=== PATIENT | female | born 1980 | race Caucasian/White ===

== ENCOUNTER 2020-12-08 18:35 | Emergency (ER) | payer OTHER, SELFPAY ==
[2020-12-08 18:55] VITALS: BP 155/103; PULSE 98; RESP 18; TEMP 37.2; O2SAT 100
[2020-12-08 21:39] VITALS: BP 142/97; PULSE 93; RESP 16; O2SAT 96
[2020-12-08] MEDS: KETOROLAC (*BKC) 60 MG/2 ML VIAL IM (22:28)
--- NOTE | 2020-12-08 23:31 | ED.BACK ---
HPI - Back Pain/Injury General Chief Complaint: Back Pain/Injury Stated Complaint: leg pain Time Seen by Provider: 12/08/20 21:55 History of Present Illness HPI Narrative: Patient is a 40-year-old female who presents ER with low back pain. Ongoing over the last couple days. Left-sided in her buttocks that radiates around in her thigh and also goes into her groin. No difficulty with urination or defecation. No focal weakness. Has history of sciatica. She has not taken any anti-inflammatory since her previous prescription of Toradol. She has no muscle relaxers at home. Patient reports chronic lymphedema in her left lower extremity that has been unchanged. No recent trauma or injury to provoke this. Related Data Allergies Allergy/AdvReac Type Severity Reaction Status Date / Time Penicillins Allergy Mild Rash Verified 01/31/15 16:39 Review of Systems Review of Systems: All systems reviewed & are unremarkable except as noted in HPI and below Constitutional: Constitutional: Denies chills and Denies fever(s) Musculoskeletal: Musculoskeletal: Reports back pain, Denies arthralgias, Denies joint swelling and Denies muscle cramps Neurologic: Denies dizziness, Denies focal weakness and Denies numbness PMFSH Past Medical History Medical History (Updated 12/09/20 @ 07:10 by Philip Bull MD) Sciatica Surgical History Surgical History (Updated 12/09/20 @ 07:10 by Philip Bull MD) No pertinent past surgical history Exam Narrative: GENERAL: Well-appearing, well-nourished, and in no acute distress. HEAD: Normocephalic, atraumatic. Back: No midline tenderness of thoracic or lumbar spine. Paraspinal tenderness in the SI region that reproduces patient's pain. EXTREMITIES: Normal range of motion. 1+ edema left greater than right. SKIN: Warm, dry, no rash. NEURO: No focal deficits. Alert and oriented x3. PSYCH: Normal mood and affect. Course Course Emergency Course: Discussed treatment plan. Patient verbalized understanding. Toradol here. Vital Signs Vital signs: Vital Signs Temperature 98.9 F 12/08/20 18:55 Pulse Rate 98 12/08/20 18:55 Respiratory Rate 18 12/08/20 18:55 Blood Pressure 155/103 H 12/08/20 18:55 Pulse Oximetry 100 12/08/20 18:55 Temperature 98.9 F 12/08/20 18:55 Pulse Rate 80 12/09/20 00:02 Respiratory Rate 16 12/09/20 00:02 Blood Pressure 130/89 12/09/20 00:02 Pulse Oximetry 97 12/09/20 00:02 Discharge Plan Discharge Clinical Impression: Sciatica Patient Disposition: Home, Self-Care Condition: Stable Instructions: Sciatica (ED) Additional Instructions: Return to the ER if you have increased pain in your back, you develop lower extremity weakness/numbness/paralysis, you have numbness or tingling in your private parts, or you are unable to control your ability to urinate/stool. Prescriptions: New naproxen 375 mg tablet 375 mg PO BID Qty: 14 RF: 0 cyclobenzaprine 10 mg tablet 10 mg PO TID PRN (Reason: muscle spasm) Qty: 20 RF: 0 Follow-up/Referrals: Henry,Cory Bardales MD [Primary Care Provider] - 1 Week
[2020-12-09 00:02] VITALS: BP 130/89; PULSE 80; RESP 16; O2SAT 97
== END 2020-12-09 00:03 | disposition home or self-care (01) ==
PROVIDERS: Emergency Provider Emergency Medicine; PCP Internal Medicine
DX: M54.42 Lumbago with sciatica, left side (principal)
CPT/HCPCS: 96372; 99283; J1885